=== PATIENT | female | born 1975 | race Caucasian/White ===

== ENCOUNTER 2018-08-19 18:38 | Emergency (ER) | payer OTHER ==
[2018-08-19] MEDS ORDERED: TDAP ADULT 0.5 ML INJ (BOOSTRIX) IM ONE (19:48)
[2018-08-19] MEDS ORDERED: AMOXICILLIN/CLAVULANATE POT 875/125 MG TAB PO ONE (19:49)
--- NOTE | 2018-08-19 20:12 | EDPHY ---
H & P Time Seen by Provider: 08/19/18 19:19 HPI/ROS: This patient was bitten by her cat yesterday when she rolled over on top the cat while half sleep and subsequently developed redness moderate discomfort and swelling to the site of the bite to the right forearm. She reports partial improvement from [id number] analgesics with no other exacerbating factors. She clean the wound with warm soapy water and applied peroxide. She is concerned about infection given her symptoms. ROS: Constitutional: No fevers or chills Neuro: No focal numbness tingling weakness 5 point review of symptoms is performed and otherwise negative with exception of pertinent positives and negatives listed in HPI and ROS Smoking Status: Never smoked Physical Exam: Physical Exam Vital signs are normal. General: No acute distress Lungs: No respiratory distress. Cardiac: Brisk capillary refill is intact throughout. Pulses are 2+ and symmetric in the affected extremity. Skin: Patient has 4 x 3 cm area of erythema, swelling surrounding a puncture wound that has a small amount of purulent discharge at the puncture site but no underlying fluctuance of any significance. On the volar aspect of the forearm there is a 1 cm area of erythema surrounding small puncture wound. There is no proximal streaking. Neuro: Alert and oriented x3 with no sensorimotor deficits to the affected extremity. Initial differential diagnosis: Cat bite with cellulitis, doubt abscess or tenosynovitis Constitutional: Initial Vital Signs Temperature (C) 36.7 C 08/19/18 19:09 Heart Rate 75 08/19/18 19:09 Respiratory Rate 18 08/19/18 19:09 Blood Pressure 143/108 H 08/19/18 19:09 O2 Sat (%) 96 08/19/18 19:09 O2 Delivery Mode Room Air Allergies/Adverse Reactions: No Known Allergies Allergy (Unverified 08/19/18 19:14) Home Medications: Medication Instructions Recorded Amoxicillin/Clavulanate Pot 875 mg PO BID #20 tab 08/19/18 [Augmentin 875 MG TAB (*)] MDM/Departure - MDM Procedures: Simple I&D: After verbal consent his chlorhexidine and an 18 gauge needle at the site of the puncture wound with release of very small amount of purulent material. Patient tolerated this well. She then had mild bleeding that stopped with direct pressure. Bacitracin bandage were then applied. I sent a wound culture which is pending. There were no complications. Medications Given: Discontinued Medications Amoxicillin/Clavulanate Potassium (Augmentin 875mg) 875 mg PO EDNOW ONE PRN Reason: Protocol Stop: 08/19/18 19:50 Last Admin: 08/19/18 20:00 Dose: 875 mg Diphtheria/Tetanus/Acell Pertussis (Boostrix) 0.5 ml IM .ONCE ONE Stop: 08/19/18 19:49 Last Admin: 08/19/18 20:00 Dose: 0.5 ml ED Course/Re-evaluation: Augmentin p.o.. Discussion: Patient with infected cat bite without evidence of sepsis clinically or significant abscess. She has a mildly purulent wound but there is very minimal purulence only isolated the site of the puncture itself with no surrounding fluctuance. I think that she is safe for treatment with oral antibiotics. I counseled regarding this. She understands the need to return should she develop any significant worsening despite the treatment plan. - Depart Disposition: Home, Routine, Self-Care Clinical Impression: Cellulitis of forearm Cat bite of forearm Qualifiers: Encounter type: initial encounter Laterality: right Qualified Code(s): S51.851A - Open bite of right forearm, initial encounter Condition: Good Instructions: Animal Bite (ED), Cellulitis (ED) Additional Instructions: Diagnosis: Cat bite with cellulitis Plan: Apply warm packs to 3 times a day until redness is resolved Clean daily with warm soapy water Augmentin antibiotic as prescribed Ibuprofen Tylenol for pain as needed Take a probiotic and/or yogurt while on Augmentin to prevent diarrhea Return for any significant worsening despite the treatment plan. Prescriptions: Amoxicillin/Clavulanate Pot [Augmentin 875 MG TAB (*)] 875 mg PO BID #20 tab Referrals: NONE *PRIMARY CARE P,. [Primary Care Provider] - As per Instructions Yolanda Donaldson MD [Medical Doctor] - As per Instructions
[2018-08-19 20:14] VITALS: BP 146/86
== END 2018-08-19 20:22 | disposition home or self-care (01) ==
LOC: CED 18:38
PROC: 0H9DXZZ Drainage of Right Lower Arm Skin, External Approach (ICD-10-PCS; principal; 2018-08-19)
DX: S51.851A Open bite of right forearm, initial encounter (principal); L03.113 Cellulitis of right upper limb; Z23 Encounter for immunization; W55.01XA Bitten by cat, initial encounter; Y99.9 Unspecified external cause status
CPT/HCPCS: 90471-ER; 99283-ER